=== PATIENT | female | born 1975 | race Caucasian/White ===

== ENCOUNTER 2017-08-22 17:22 | Emergency (ER) | payer MEDICAID ==
[~2017-08-22] VITALS: Ht 170.2 cm; Wt 117.2 kg
[~2017-08-22 17:22] MED LIST: ATEN25TA PO; GABA300C10 PO; HYDR-3240 PO; HYDR25TA6 PO; LOSA25TA5 PO
[2017-08-22] MEDS ORDERED: LORazepam 1MG TABLET PO ONE (18:30)
[2017-08-22] MEDS ORDERED: LORazepam 1MG TABLET ONE (18:32)
[2017-08-22 18:45] LABS: BASOPHILS # (AUTO) 0.03 x10^3/uL (0-0.1); BASOPHILS % (AUTO) 0 % (0-1); EOSINOPHILS # (AUTO) 0.25 x10^3/uL (0-0.4); EOSINOPHILS % (AUTO) 3 % (1-7); LYMPHOCYTES # (AUTO) 1.26 x10^3/uL (1-3.4); LYMPHOCYTES % (AUTO) 14 % (22-44); MD NO; MEAN CORPUSCULAR HEMOGLOBIN 29.6 pg (27.0-34.8); MEAN CORPUSCULAR HGB CONC 34.1 g/dL (32.4-35.8); MEAN CORPUSCULAR VOLUME 86.9 fL (80-100); MEAN PLATELET VOLUME 7.7 fL (7.4-10.4); MONOCYTES # (AUTO) 0.56 x10^3/uL (0.2-0.8); MONOCYTES % (AUTO) 6 % (2-9); NEUTROPHILS # (AUTO) 7.01 x10^3/uL (1.8-6.8); NEUTROPHILS % (AUTO) 77 % (42-75); PLATELET COUNT 320 x10^3/uL (130-400); RED BLOOD COUNT 4.82 x10^6/uL (3.82-5.3); RED CELL DISTRIBUTION WIDTH 13.8 % (9.6-15.2)
[2017-08-22 18:55] LABS: ALANINE AMINOTRANSFERASE 27 U/L (12-78); ALBUMIN 3.8 g/dL (3.4-5.0); ANION GAP 7 mmol/L (5-15); CALCIUM 9.3 mg/dL (8.5-10.1); CHLORIDE 105 mmol/L (98-107)
[2017-08-22] MEDS ORDERED: METF500T5 PO (18:55)
[2017-08-22] MEDS ORDERED: LAMO50TA3 PO (18:56)
[2017-08-22] MEDS ORDERED: BUPR-173 PO (18:56)
[2017-08-22] MEDS ORDERED: DULA0.75 INJ (18:56)
[2017-08-22] MEDS ORDERED: POTA25TA4 PO (18:57)
[2017-08-22 19:00] LABS: ALKALINE PHOSPHATASE 81 U/L (45-117); BILIRUBIN,TOTAL 0.2 mg/dL (0.2-1.0); CREATININE 1.01 mg/dL (0.55-1.02); SALICYLATE LEVEL < 1.7 mg/dL (2.8-20.0); TOTAL PROTEIN 7.4 g/dL (6.4-8.2)
[2017-08-22 19:01] LABS: ACETAMINOPHEN < 2 mcg/mL (10-30)
[2017-08-22 19:16] LABS: MICROSCOPIC NOT IND
[2017-08-22 19:20] LABS: CULTURE INDICATED? NO
[2017-08-22 19:32] LABS: AMPHETAMINE SCREEN, URINE Negative (Negative); BARBITURATE SCREEN, URINE Negative (Negative); BENZODIAZEPINE SCREEN, URINE Negative (Negative); CANNABINOID SCREEN, URINE Negative (Negative); COCAINE SCREEN, URINE Negative (Negative); METHADONE SCREEN, URINE Negative (Negative); OPIATE SCREEN, URINE Negative (Negative)
== END 2017-08-22 20:24 | disposition home or self-care (01) ==
LOC: MERGE 17:22 → ED 18:57
DX: R55 Syncope and collapse (principal); F41.1 Generalized anxiety disorder; Z79.899 Other long term (current) drug therapy
CPT/HCPCS: 36415; 80053; 80307; 80329; 81003; 84703; 85025; 93005; 99285; G0480

== ENCOUNTER 2018-06-10 13:05 | Inpatient (IN) | payer MEDICAID ==
[~2018-06-10] VITALS: Ht 170.2 cm; Wt 108.2 kg
[~2018-06-10 13:05] MED LIST changes: +BUPR-173 PO; +DULA0.75 INJ; +LAMO50TA3 PO; +LOSA25TA25 PO; -LOSA25TA5 PO; +METF500T17 PO; +POTA25TA4 PO
[2018-06-10] MEDS ORDERED: LORazepam 1MG TABLET PO ONE (13:30)
--- NOTE | 2018-06-10 13:31 | NUR ---
PT BIB [facility] FOR SUICIDAL IDEATIONS. PT STATED SHE WENT TO [place] TODAY AND CONFIDED IN HER V BELT FINISHER AND [place] MEM[facility]ERS OF HER SUICIDAL IDEATIONS. [facility] WAS CALLED AND PT BROUGHT TO ED. PER [facility], HEATH STATED SHE HAD LOOKED UP ON LINE WHICH OF HER MEDICATIONS THAT SHE COULD OVERDOSE ON. PT WITH HX OVERDOSE WITH PRIOR HISTORY OF SA. PT A&OX4. PT PLACED IN ROOM AND PLACED IN GOWN. PT DENIES TAKING ANY MEDICATIONS. PT STATED SHE DID START DRINKING WINE AT 2:00 THIS AM AND DRANK 2 BOTTLES OF WINE. ROOM SECURED AND BELONGINGS LOCKED IN APPROPRIATE AREA. PT BREATHALYZED AT 0.000. PT GIVEN WARM BLANKET. V BELT FINISHER AT BEDSIDE.
[2018-06-10 13:41] LABS: BASOPHILS # (AUTO) 0.02 x10^3/uL (0-0.1); BASOPHILS % (AUTO) 0 % (0-1); EOSINOPHILS # (AUTO) 0.28 x10^3/uL (0-0.4); EOSINOPHILS % (AUTO) 3 % (1-7); LYMPHOCYTES # (AUTO) 1.05 x10^3/uL (1-3.4); LYMPHOCYTES % (AUTO) 12 % (22-44); MD NO; MEAN CORPUSCULAR HEMOGLOBIN 29.2 pg (27.0-34.8); MEAN CORPUSCULAR HGB CONC 33.6 g/dL (32.4-35.8); MEAN CORPUSCULAR VOLUME 86.8 fL (80-100); MEAN PLATELET VOLUME 8.3 fL (7.4-10.4); MONOCYTES # (AUTO) 0.41 x10^3/uL (0.2-0.8); MONOCYTES % (AUTO) 5 % (2-9); NEUTROPHILS # (AUTO) 7.17 x10^3/uL (1.8-6.8); NEUTROPHILS % (AUTO) 80 % (42-75); PLATELET COUNT 383 x10^3/uL (130-400); RED BLOOD COUNT 4.81 x10^6/uL (3.82-5.3); RED CELL DISTRIBUTION WIDTH 15.1 % (9.6-15.2)
[2018-06-10 13:46] LABS: AMPHETAMINE SCREEN, URINE Negative (Negative); BARBITURATE SCREEN, URINE Negative (Negative); BENZODIAZEPINE SCREEN, URINE Negative (Negative); CANNABINOID SCREEN, URINE Negative (Negative); COCAINE SCREEN, URINE Negative (Negative); METHADONE SCREEN, URINE Negative (Negative); OPIATE SCREEN, URINE Negative (Negative)
--- NOTE | 2018-06-10 13:48 | NUR ---
2 BAGS OF BELONGINGS LOCKED IN CABINET.
[2018-06-10 13:49] LABS: ALBUMIN 3.9 g/dL (3.4-5.0); ANION GAP 7 mmol/L (5-15); CALCIUM 8.9 mg/dL (8.5-10.1); CHLORIDE 103 mmol/L (98-107); CREATININE 0.88 mg/dL (0.55-1.02)
[2018-06-10] MEDS ORDERED: ATOR40TA78 PO (13:53)
[2018-06-10] MEDS ORDERED: ALBU18HF INH (13:55)
[2018-06-10 13:56] LABS: ACETAMINOPHEN < 2 mcg/mL (10-30); SALICYLATE LEVEL < 1.7 mg/dL (2.8-20.0)
--- NOTE | 2018-06-10 14:30 | NUR ---
CALLED AND LEFT MESSAGE TO INITIATE [facility] ASSESSMENT
[2018-06-10] MEDS ORDERED: LORazepam 1MG TABLET ONE (15:27)
--- NOTE | 2018-06-10 15:28 | NUR ---
HOSPITALIST AT BEDSIDE.
--- NOTE | 2018-06-10 15:54 | NUR ---
[facility] CONSULT CANCELLED DUE TO PT BEING ADMITTED AND NOW NOT MEDICALLY CLEARED DUE TO POTENTIAL ALCOHOL W/D
[2018-06-10] MEDS ORDERED: ONDANSETRON ODT 4 MG PO PRN (16:00)
[2018-06-10] MEDS ORDERED: LORazepam 0.5MG TABLET PO PRN (16:00)
[2018-06-10] MEDS ORDERED: LORazepam 1MG TABLET PO PRN ×4 (16:00)
[2018-06-10] MEDS ORDERED: LABETALOL 5 MG/ML SYRINGE IVPush PRN (16:00)
[2018-06-10] MEDS ORDERED: LORazepam 2 MG/ML, 1ML IV PRN ×5 (16:00)
[2018-06-10] MEDS ORDERED: POLYETHYLENE GLYCOL 17 GM PACKET PO PRN (16:00)
[2018-06-10] MEDS ORDERED: ONDANSETRON 2MG/ML, 2ML IVPush PRN (16:00)
[2018-06-10 16:32] LABS: FREE T4 (FREE THYROXINE) 0.95 ng/dL (0.76-1.46)
--- NOTE | 2018-06-10 16:43 | NUR ---
REPORT CALLED TO [facility]. PT WILL THEN BE TRANSFERRED TO FLOOR
[2018-06-10] MEDS: POTASSIUM CHLORIDE 20 MEQ, MAGNESIUM SULFATE 1 GM, MVI ADULT 10 ML, THIAMINE 200 MG, FO... IV SCH (18:09)
[2018-06-10] MEDS: ENOXAPARIN 40 MG/0.4 ML SQ SCH (18:09)
[2018-06-10 19:25] VITALS: BP 142/76
[2018-06-10] MEDS: ATORVASTATIN 40 MG TABLET PO SCH (21:23)
[2018-06-10] MEDS: LAMOTRIGINE 100 MG TABLET PO SCH (21:24)
[2018-06-10] MEDS: GABAPENTIN 300 MG CAPSULE PO SCH (21:24)
[2018-06-10] MEDS: metFORMIN 500 MG TABLET PO SCH (21:24)
[2018-06-11 01:33] VITALS: BP 152/75
[2018-06-11 04:50] LABS: BASOPHILS # (AUTO) 0.02 x10^3/uL (0-0.1); BASOPHILS % (AUTO) 0 % (0-1); EOSINOPHILS # (AUTO) 0.19 x10^3/uL (0-0.4); EOSINOPHILS % (AUTO) 2 % (1-7); LYMPHOCYTES % (AUTO) 14 % (22-44); MD NO; MEAN CORPUSCULAR HEMOGLOBIN 29.2 pg (27.0-34.8); MEAN CORPUSCULAR HGB CONC 33.5 g/dL (32.4-35.8); MEAN CORPUSCULAR VOLUME 87.3 fL (80-100); MEAN PLATELET VOLUME 7.9 fL (7.4-10.4); MONOCYTES # (AUTO) 0.46 x10^3/uL (0.2-0.8); MONOCYTES % (AUTO) 6 % (2-9); NEUTROPHILS # (AUTO) 6.22 x10^3/uL (1.8-6.8); NEUTROPHILS % (AUTO) 78 % (42-75); PLATELET COUNT 329 x10^3/uL (130-400); RED CELL DISTRIBUTION WIDTH 15.8 % (9.6-15.2)
[2018-06-11 05:02] LABS: CHLORIDE 105 mmol/L (98-107)
[2018-06-11 05:21] LABS: ALANINE AMINOTRANSFERASE 59 U/L (12-78); ALBUMIN 3.6 g/dL (3.4-5.0); ALKALINE PHOSPHATASE 74 U/L (45-117); ANION GAP 9 mmol/L (5-15); BILIRUBIN,TOTAL 0.6 mg/dL (0.2-1.0); CALCIUM 8.6 mg/dL (8.5-10.1); CREATININE 0.86 mg/dL (0.55-1.02); THYROID STIMULATING HORMONE 0.782 mIU/L (0.358-3.740); TOTAL PROTEIN 6.6 g/dL (6.4-8.2)
[2018-06-11 07:19] VITALS: BP 146/79
[2018-06-11] MEDS: SENNA/DOCUSATE TABLET PO SCH (07:53)
[2018-06-11] MEDS: BUPROPION SR 100 MG TABLET PO SCH (07:53)
[2018-06-11] MEDS: metFORMIN 500 MG TABLET PO SCH ×2 (07:53→20:07)
[2018-06-11] MEDS: LOSARTAN 50MG TABLET PO SCH (07:53)
[2018-06-11] MEDS: GABAPENTIN 300 MG CAPSULE PO SCH ×2 (07:54→20:07)
[2018-06-11] MEDS: HYDROCHLOROTHIAZIDE 25 MG TABLET PO SCH (07:54)
[2018-06-11 12:48] VITALS: BP 157/88
[2018-06-11] MEDS: POTASSIUM CHLORIDE 20 MEQ, MAGNESIUM SULFATE 1 GM, MVI ADULT 10 ML, THIAMINE 200 MG, FO... IV SCH (17:32)
[2018-06-11] MEDS: ENOXAPARIN 40 MG/0.4 ML SQ SCH (17:32)
[2018-06-11 19:07] VITALS: BP 164/95
[2018-06-11] MEDS: LAMOTRIGINE 100 MG TABLET PO SCH (20:07)
[2018-06-11] MEDS: ATORVASTATIN 40 MG TABLET PO SCH (20:07)
[2018-06-12 01:24] VITALS: BP 156/88
[2018-06-12 05:03] LABS: ALBUMIN 3.5 g/dL (3.4-5.0); ANION GAP 7 mmol/L (5-15); CALCIUM 8.9 mg/dL (8.5-10.1); CHLORIDE 106 mmol/L (98-107)
[2018-06-12 05:04] LABS: CREATININE 0.86 mg/dL (0.55-1.02)
[2018-06-12 07:28] VITALS: BP 147/89
[2018-06-12] MEDS: HYDROCHLOROTHIAZIDE 25 MG TABLET PO SCH (08:48)
[2018-06-12] MEDS: GABAPENTIN 300 MG CAPSULE PO SCH (08:48)
[2018-06-12] MEDS: BUPROPION SR 100 MG TABLET PO SCH (08:49)
[2018-06-12] MEDS: metFORMIN 500 MG TABLET PO SCH (08:49)
[2018-06-12] MEDS: SENNA/DOCUSATE TABLET PO SCH (08:49)
[2018-06-12] MEDS: LOSARTAN 50MG TABLET PO SCH (08:49)
[2018-06-12] MEDS ORDERED: FOLIC ACID 1 MG TABLET PO SCH (09:00)
[2018-06-12] MEDS ORDERED: THIAMINE 100MG TABLET PO SCH (09:00)
[2018-06-12 12:24] VITALS: BP 157/87
[2018-06-12] MEDS ORDERED: LORazepam 1MG TABLET PO PRN (12:30)
== END 2018-06-12 14:59 | DRG 885 ==
LOC: ED 13:43 → EDIP 14:09 → 3NE 17:24 → 2N 06-12 12:07
PROVIDERS: ADMIT Internal Medicine; ATTEND Internal Medicine
DX: F33.2 Major depressive disorder, recurrent severe without psychotic features (principal); R45.851 Suicidal ideations; F10.239 Alcohol dependence with withdrawal, unspecified; F10.229 Alcohol dependence with intoxication, unspecified; E66.9 Obesity, unspecified; E78.5 Hyperlipidemia, unspecified; F60.3 Borderline personality disorder; I10 Essential (primary) hypertension; Z68.37 Body mass index [BMI] 37.0-37.9, adult; Z87.891 Personal history of nicotine dependence; Z90.49 Acquired absence of other specified parts of digestive tract; Z88.8 Allergy status to other drugs, medicaments and biological substances
CPT/HCPCS: 36415; 80048; 80053; 80307; 80329; 82040; 83690; 83735; 84100; 84439; 84443; 84703; 85025; G0378; J1650; J3411; J3475; J3480; G0480